=== PATIENT | female | born 1985 | race Caucasian/White ===

== ENCOUNTER 2019-04-26 11:17 | Inpatient (IN) | payer OTHER ==
[~2019-04-26] VITALS: Ht 175.3 cm; Wt 2.7 kg
[2019-05-24] MEDS ORDERED: PRENATAL CAPLE1 EAC1 PO (04:25)
[2019-05-27] MEDS ORDERED: KETO10TA2 PO ×2 (06:44)
[2019-05-27] MEDS ORDERED: OXYC1TAB9 PO ×2 (06:45)
== END 2019-05-27 11:24 | disposition home or self-care (01) | DRG 787 ==
LOC: OB/GYN 05-19 15:30 → LDR 05-24 03:34 → OB/GYN 05-24 13:15
PROVIDERS: ADMIT Obstetrics & Gynecology Maternal & Fetal Medicine
PROC: 4A033R1 Measurement of Arterial Saturation, Peripheral, Percutaneous Approach (ICD-10-PCS; 2019-05-24)
PROC: 4A1HXCZ Monitoring of Products of Conception, Cardiac Rate, External Approach (ICD-10-PCS; 2019-05-24)
PROC: 10D00Z1 Extraction of Products of Conception, Low, Open Approach (ICD-10-PCS; principal; 2019-05-24 11:00)
DX: O76 Abnormality in fetal heart rate and rhythm complicating labor and delivery (principal); O41.03X0 Oligohydramnios, third trimester, not applicable or unspecified; Z3A.40 40 weeks gestation of pregnancy; Z37.0 Single live birth

== ENCOUNTER 2019-05-17 10:14 | Outpatient (CLI) | payer OTHER ==
[2019-05-27] MEDS ORDERED: KETO10TA2 PO (06:44)
[2019-05-27] MEDS ORDERED: OXYC1TAB9 PO (06:45)
== END 2019-05-17 11:39 | disposition home or self-care (01) ==
LOC: NST 10:14
DX: Z34.83 Encounter for supervision of other normal pregnancy, third trimester (principal)

== ENCOUNTER 2019-05-23 12:14 | Outpatient (CLI) | payer OTHER ==
[2019-05-24] MEDS ORDERED: PRENATAL CAPLE1 EAC1 PO (04:25)
== END 2019-05-23 13:37 | disposition home or self-care (01) ==
LOC: NST 12:14
DX: Z34.83 Encounter for supervision of other normal pregnancy, third trimester (principal)